=== PATIENT | male | born 1975 | race Caucasian/White ===

== ENCOUNTER → 2019-06-02 08:51 | Outpatient (CLI) | payer BC, SELFPAY ==
[2019-06-02 11:00] LABS: Anion Gap 7 (5-15); BUN 11 mg/dL (7-18); Calcium,Total 8.7 mg/dL (8.5-10.1); Chloride 109 mmol/L (98-107); Cholesterol 218 mg/dL (200); EST Glomerular Filtration Rate 86 mL/min (>60); Est Glom Filt Rate - Afr Amer 104 mL/min (>60); Glucose 103 mg/dL (74-106); High Density Lipoprotein 43 mg/dL; Potassium 4.4 mmol/L (3.5-5.1); Sodium Level 141 mmol/L (136-145); Triglycerides 127 mg/dL; Very Low Density Lipoprotein 25 mg/dL (5-40)
[2019-06-02 11:01] LABS: Hemoglobin A1c 5.5 % (4.2-6.3)
== END ==
PROVIDERS: Family Provider Family Medicine; PCP Family Medicine; Referring Provider Family Medicine; Visit Provider Family Medicine
DX: Z00.00 Encounter for general adult medical examination without abnormal findings (principal)
CPT/HCPCS: 36415; 80048; 80061; 82306; 83036

== ENCOUNTER → 2020-02-20 15:09 | Outpatient (CLI) | payer BC, SELFPAY ==
--- NOTE | 2020-02-20 15:11 | RAD_ITS ---
STUDY: X-RAY - RIGHT WRIST REASON FOR EXAM: Male, 44 years old. PAIN IN RIGHT WRIST ANTERIORLY RADIATING INTO PALM OF HAND AND UP ARM. PATIENT STATES HX OF A FX TO RIGHT WRIST MANY YRS AGO. TECHNIQUE: 3 view(s) of the wrist were obtained. COMPARISON: None. FINDINGS: Normal visualized distal radius and ulna. Normal radiocarpal articulation. Normal distal radioulnar articulation. Normal carpal bones. Normal carpal articulations. Normal carpometacarpal articulation of the thumb. Normal second through fifth carpometacarpal articulations. 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 The soft tissue structures are unremarkable. 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 Electronically Signed: Andres Jurado MD at 15:26 EDT Tel , Service support ,
== END ==
LOC: MTRAD 15:10
PROVIDERS: PCP Family Medicine; Referring Provider Family Medicine; Visit Provider Family Medicine
DX: S69.90XA Unspecified injury of unspecified wrist, hand and finger(s), initial encounter (principal)
CPT/HCPCS: 73110

== ENCOUNTER → 2020-03-14 14:21 | Outpatient (CLI) | payer BC, SELFPAY ==
--- NOTE | 2020-03-14 14:28 | CT_ITS ---
STUDY: RIGHT WRIST CT SCAN REASON FOR EXAM: Male, 44 years old. RIGHT WRIST FX- 20 YEARS AGO. NON UNION SCAPHOID RADIATION DOSAGE (If Supplied By Facility): CTDIvol = ( 20.42 ) mGy, DLP = ( 399.40 ) mGycm. Individualized dose optimization techniques were used for this CT.? TECHNIQUE: Axial multidetector CT scan of the right wrist. Coronal and sagittal reformatted images. COMPARISON: February 20, 2020. FINDINGS: Chronic nonunited scaphoid waist fracture (coronal image 22 series 601). No acute fracture line. No acute dislocation. Dorsal lunate tilt (sagittal image 24 series 602). Cysts/erosions involving the distal radius, scaphoid, lunate, trapezoid and capitate. Mild posterior widening of the scapholunate interval measuring up to 6 mm (coronal image 20 series 601 and axial image 37 series 1004). Chondrocalcinosis at the region of the scapholunate interval, triangular fibrocartilage complex, dorsal and volar extrinsic ligaments. Mild/moderate radial carpal joint arthrosis. Mild intercarpal joint arthrosis. Normal carpometacarpal joints. Normal visualized metacarpal phalangeal joints. Normal visualized muscles. Normal visualized subcutaneous tissues. Visualized flexor and extensor tendons unremarkable given CT technique. CT/Extremity Upper without Contra IMPRESSION: Chronic nonunited scaphoid waist fracture Nonspecific cyst/erosions, as above, with crystal deposition disease Scapholunate interval widening (suspected partial ligament tear) Dorsal lunate tilt Radiocarpal and intercarpal joint arthrosis Electronically Signed: Jerome Brown DO at 15:08 EDT Tel , Service support ,
== END ==
PROVIDERS: PCP Family Medicine; Referring Provider Physician Assistant; Visit Provider Physician Assistant
DX: S62.014K Nondisplaced fracture of distal pole of navicular [scaphoid] bone of right wrist, subsequent encounter for fracture with nonunion (principal)
CPT/HCPCS: 73200

== ENCOUNTER → 2020-07-02 08:10 | Outpatient (CLI) | payer BC, SELFPAY ==
[2020-07-02 11:06] LABS: Anion Gap 7 (5-15); BUN 12 mg/dL (7-18); BUN/Creat Ratio 10.6 RATIO (10-20); Calcium,Total 8.8 mg/dL (8.5-10.1); Chloride 103 mmol/L (98-107); Cholesterol 237 mg/dL (200); Creatinine, Serum 1.13 mg/dL (0.70-1.30); EST Glomerular Filtration Rate 74 mL/min (>60); Est Glom Filt Rate - Afr Amer 90 mL/min (>60); Glucose 90 mg/dL (74-106); High Density Lipoprotein 51 mg/dL; Potassium 4.2 mmol/L (3.5-5.1); Sodium Level 137 mmol/L (136-145); Thyroid Stim Hormone (TSH) 2.13 uIU/mL (0.358-3.74); Triglycerides 155 mg/dL; Very Low Density Lipoprotein 31 mg/dL (5-40)
== END ==
PROVIDERS: PCP Family Medicine; Referring Provider Family Medicine; Visit Provider Family Medicine
DX: Z00.00 Encounter for general adult medical examination without abnormal findings (principal)
CPT/HCPCS: 36415; 80048; 80061; 84403; 84443